=== PATIENT | male | born 1980 | race African-American/Black ===

== ENCOUNTER 2018-12-09 17:33 | Inpatient (IN) | payer MEDICAID ==
[~2018-12-09] VITALS: Ht 170.2 cm; Wt 68.5 kg
[~2018-12-09 17:33] MED LIST: ALBU05; ALPR2TAB2 PO; B50 GT; FOLI-43 PO; HYDR2TAB4; OXYC15TA82; TEMA30CA PO
[2018-12-09] MEDS ORDERED: ONDANSETRON HCL 4MG/2ML INJ IV STA (19:06)
[2018-12-09] MEDS ORDERED: SODIUM CHLORIDE 0.9% 1,000 ML IV ONE ×2 (19:06→21:20)
[2018-12-09] MEDS ORDERED: MORPHINE SULFATE 4 MG/ML CPJ (NOT FOR IM USE) IV STA (19:06)
[2018-12-09] MEDS ORDERED: DIPHENHYDRAMINE 50MG/ML VIAL IV ONE ×2 (19:15→20:45)
[2018-12-09 19:43] LABS: CHLORIDE 111 mEq/L (98-107)
[2018-12-09 19:46] LABS: MEAN CORPUSCULAR HEMOGLOBIN 35.8 pg (28.0-32.0); MEAN CORPUSCULAR VOLUME 101.1 fL (80.0-94.0); MEAN PLATELET VOLUME 8.8 fl (7.4-10.4); PLATELET 352 x1000/uL (130-400); RED BLOOD CELL COUNT 1.81 mill/uL (4.7-6.1); RED CELL DISTRIBUTION WIDTH 19.8 % (11.6-14.6)
[2018-12-09 19:49] LABS: ETHANOL BLOOD < 10 mg/dL
[2018-12-09 19:50] LABS: INR 1.1; PROTHROMBIN TIME 11.5 sec (9.1-11.1)
[2018-12-09 19:53] LABS: CREATINE KINASE 161 IU/L (39-308)
[2018-12-09 19:58] LABS: HEMATOCRIT. 18.3 % (42.0-52.0); HEMOGLOBIN. 6.5 g/dL (14.0-18.0)
[2018-12-09] MEDS ORDERED: MORPHINE SULFATE 10 MG/ML CPJ IV ONE (20:45)
[2018-12-09] MEDS ORDERED: ONDANSETRON HCL 4MG/2ML INJ IV ONE (20:45)
[2018-12-09 21:13] LABS: NUCLEATED RED BLOOD CELLS 3 /100 WBC
[2018-12-09 21:14] LABS: PLATELET ESTIMATE NORMAL
[2018-12-09] MEDS ORDERED: LORAZEPAM 2MG/ML CPJ IV ONE (21:30)
[2018-12-09 23:23] LABS: CLARITY URINE CLEAR (CLEAR); COLOR URINE DARK YELLOW (YELLOW); KETONES URINE NEGATIVE (NEGATIVE); LEUKOCYTE ESTERASE URINE NEGATIVE (NEGATIVE); NITRITE URINE NEGATIVE (NEGATIVE); OCCULT BLOOD URINE TRACE (NEGATIVE); PROTEIN URINE TRACE (NEGATIVE); SPECIFIC GRAVITY URINE 1.014 (1.005-1.030)
[2018-12-09 23:36] LABS: *AMPHETAMINES SCREEN URINE NEGATIVE (NEGATIVE); *BARBITURATES SCREEN URINE NEGATIVE (NEGATIVE); *BENZODIAZEPINES SCREEN URINE PRESUMTIVE POSITIVE (NEGATIVE); *COCAINE SCREEN URINE NEGATIVE (NEGATIVE); METHADONE URINE SCREEN NEGATIVE (NEGATIVE); OPIATES URINE SCREEN PRESUMTIVE POSITIVE (NEGATIVE)
[2018-12-09 23:37] LABS: CANNABINOID URINE SCREEN PRESUMTIVE POSITIVE (NEGATIVE); PHENCYCLIDINE URINE SCREEN NEGATIVE (NEGATIVE)
[2018-12-10] VITALS (11 sets, daily range): BP systolic 103–169; BP diastolic 50–82
[2018-12-10] MEDS ORDERED: HYDROMORPHONE HCL/PF 2MG/ML CPJ IV PRN ×2 (06:00→10:17)
[2018-12-10] MEDS ORDERED: ONDANSETRON HCL 4MG/2ML INJ IV PRN (06:15)
[2018-12-10] MEDS: DIPHENHYDRAMINE 50MG/ML VIAL IV PRN ×4 (06:17→19:15)
[2018-12-10] MEDS: SODIUM CHLORIDE 0.9% 1,000 ML IV SCH ×2 (07:00→17:00)
[2018-12-10 12:59] LABS: MEAN CORPUSCULAR HEMOGLOBIN 36.5 pg (28.0-32.0); MEAN CORPUSCULAR VOLUME 102.1 fL (80.0-94.0); MEAN PLATELET VOLUME 8.8 fl (7.4-10.4); PLATELET 323 x1000/uL (130-400); RED BLOOD CELL COUNT 1.81 mill/uL (4.7-6.1); RED CELL DISTRIBUTION WIDTH 18.8 % (11.6-14.6)
[2018-12-10 13:11] LABS: CHLORIDE 111 mEq/L (98-107)
[2018-12-10 13:12] LABS: HEMATOCRIT. 18.4 % (42.0-52.0); HEMOGLOBIN. 6.6 g/dL (14.0-18.0)
[2018-12-10 13:45] LABS: NUCLEATED RED BLOOD CELLS 6 /100 WBC; PLATELET ESTIMATE NORMAL
[2018-12-10] MEDS: HYDROMORPHONE HCL/PF 2MG/ML CPJ IV PRN ×2 (14:32→19:12)
[2018-12-10] MEDS ORDERED: ACETAMINOPHEN 500MG TABLET PO PRN (14:45)
[2018-12-10] MEDS ORDERED: DIPHENHYDRAMINE 50MG/ML VIAL IV NR (15:30)
[2018-12-11] VITALS: BP 129/85
[2018-12-11] MEDS: HYDROMORPHONE HCL/PF 2MG/ML CPJ IV PRN ×6 (00:19→22:18)
[2018-12-11] MEDS: DIPHENHYDRAMINE 50MG/ML VIAL IV PRN ×6 (00:20→22:17)
[2018-12-11] MEDS: SODIUM CHLORIDE 0.9% 1,000 ML IV SCH ×2 (03:01→13:00)
[2018-12-11 04:00] VITALS: BP 118/65
[2018-12-11 08:00] VITALS: BP 113/66
[2018-12-11 12:20] VITALS: BP 113/58
[2018-12-11 16:00] VITALS: BP 142/72
[2018-12-11 20:00] VITALS: BP 129/64
[2018-12-12] VITALS: BP 127/54
[2018-12-12] MEDS: HYDROMORPHONE HCL/PF 2MG/ML CPJ IV PRN ×5 (02:40→21:03)
[2018-12-12] MEDS: DIPHENHYDRAMINE 50MG/ML VIAL IV PRN ×5 (02:40→21:02)
[2018-12-12 04:00] VITALS: BP 107/66
[2018-12-12 06:24] LABS: HEMATOCRIT 25.1 % (42.0-52.0); HEMOGLOBIN 8.6 g/dL (14.0-18.0); MEAN CORPUSCULAR HEMOGLOBIN 35.1 pg (28.0-32.0); MEAN CORPUSCULAR VOLUME 102.1 fL (80.0-94.0); PLATELET 330 x1000/uL (130-400); RED BLOOD CELL COUNT 2.46 mill/uL (4.7-6.1); RED CELL DISTRIBUTION WIDTH 17.9 % (11.6-14.6)
[2018-12-12 06:28] LABS: CHLORIDE 114 mEq/L (98-107)
[2018-12-12 07:51] VITALS: BP 128/64
[2018-12-12] MEDS: SODIUM CHLORIDE 0.9% 1,000 ML IV SCH ×2 (08:36→21:11)
[2018-12-12 20:00] VITALS: BP 142/61
[2018-12-13] VITALS: BP 142/69
[2018-12-13] MEDS: HYDROMORPHONE HCL/PF 2MG/ML CPJ IV PRN ×4 (01:34→13:53)
[2018-12-13] MEDS: DIPHENHYDRAMINE 50MG/ML VIAL IV PRN ×4 (01:35→15:53)
[2018-12-13 04:00] VITALS: BP 130/54
[2018-12-13] MEDS: SODIUM CHLORIDE 0.9% 1,000 ML IV SCH (05:26)
[2018-12-13 08:00] VITALS: BP 145/70
[2018-12-13 10:09] VITALS: BP 145/70
[2018-12-13 12:00] VITALS: BP 140/69
[2018-12-13] MEDS ORDERED: HYDR4TAB4 MT ×2 (14:44→14:45)
[2018-12-13 14:49] VITALS: BP 121/84
== END 2018-12-13 16:03 | disposition home or self-care (01) | DRG 662 ==
LOC: ER 17:33 → 6EST 21:36 → ENRESERV 12-10 02:27 → 6EST 12-10 13:31
PROVIDERS: ADMIT Internal Medicine; ATTEND Internal Medicine
PROC: 30233N1 Transfusion of Nonautologous Red Blood Cells into Peripheral Vein, Percutaneous Approach (ICD-10-PCS; principal; 2018-12-10)
DX: D57.00 Hb-SS disease with crisis, unspecified (principal); R65.10 Systemic inflammatory response syndrome (SIRS) of non-infectious origin without acute organ dysfunction; K21.9 Gastro-esophageal reflux disease without esophagitis; M19.90 Unspecified osteoarthritis, unspecified site; Z88.6 Allergy status to analgesic agent; Z91.018 Allergy to other foods; Z79.899 Other long term (current) drug therapy; Z90.49 Acquired absence of other specified parts of digestive tract
CPT/HCPCS: 36415; 71045; 72110; 80048; 80305; 82550; 83615; 84484; 85027; 85044; 86850; 86900; 86920; 96374; 96375; 99285; A6261; J1170; J1200; J2060; J2270; J2405; J7030; J7040; P9016